=== PATIENT | male | born 1980 | race Caucasian/White ===

== ENCOUNTER → 2016-11-20 | Outpatient (CLI) | payer BC, OTHER ==
[~2016-11-20] MED LIST: CELE40TA PO; CYCL10TA PO; IBUP600T26 PO; OMEP40CA2 PO
--- NOTE | 2016-11-21 07:00 | REP ---
Status post knee sprain. Priors: None. There is very mild medial compartmental narrowing without evidence of prominent marginal osteophytosis, fracture, dislocation, or destructive osseous lesion. IMPRESSION: Very mild medial compartmental narrowing. Signed by Wilfred Jerome DO 11/21/2016 12:05 P
== END ==
LOC: M WUC 13:46
PROVIDERS: ATTEND Physician Assistant
DX: M17.11 Unilateral primary osteoarthritis, right knee (principal)

== ENCOUNTER → 2019-06-10 | Outpatient (REF) | payer OTHER ==
[~2019-06-10] MED LIST changes: +IBUP-1022 PO; -IBUP600T26 PO; -OMEP40CA2 PO; +OMEP40CA97 PO
== END ==
LOC: M SFHCLERA 17:32
PROVIDERS: ATTEND Nurse Practitioner Family
DX: J02.9 Acute pharyngitis, unspecified (principal)

== ENCOUNTER → 2020-02-19 | Outpatient (REF) | payer OTHER ==
[~2020-02-19] MED LIST changes: +CYCL-707 PO; -CYCL10TA PO
== END ==
LOC: M SMT 14:12
PROVIDERS: ATTEND Urology
DX: Z30.2 Encounter for sterilization (principal)

== ENCOUNTER → 2020-04-28 | Outpatient (REF) | payer OTHER ==
[2020-06-18 08:28] LABS: SEMEN APPEARANCE OPAQUE (OPAQUE); SEMEN VISCOSITY LIQUID (LIQUID); SEMEN VOLUME 1.7 ml (2.0-5.0); SEMEN pH 8.5 (7.0-8.0); WBC CONCENTRATION >1 M/ml (<=1 M/ml)
== END ==
LOC: M SMT 11:01
PROVIDERS: ATTEND Urology
DX: Z30.2 Encounter for sterilization (principal); Z98.52 Vasectomy status